=== PATIENT | female | born 1935 | race Caucasian/White ===

== ENCOUNTER 2018-10-16 10:19 | Observation (INO) ==
[2018-10-16 11:26] LABS: Basophils % 0.4 % (0.0-0.8); Eosinophils % 0.4 % (0.00-10.9); Hematocrit 47.2 VOL% (35.7-47.0); Immature Granulocytes % 0.5 %; Immature Granulocytes Absolute 0.05 #; Lymphocytes % 9.2 % (21.3-54.2); Mean Corpuscular HGB Conc 33.9 GM/DL (32-36); Mean Corpuscular Volume 89.2 FL (87-102); Mean Platelet Volume 10.9 FL (9.6-12.0); Monocytes % 4.4 % (1.7-12.7); Neutrophils % 85.1 % (38.7-73.9); Platelet Count 231 T/CUMM (130-400); Red Blood Count 5.29 MC/CUMM (3.8-5.5); Red Cell Distribution Width 13.6 % (9.3-17.3)
[2018-10-16 11:36] LABS: Bilirubin,Total 0.4 MG/DL (0.2-1.0); Calcium 9.5 MG/DL (8.5-10.1); Osmolality,Calculated 279.3 MOS/KG (273-304); Total Protein 6.8 G/DL (6.4-8.3)
[2018-10-16 11:46] LABS: Apearance,Urine Slightly Hazy (Clear); Bacteria,Urine Few /HPF (Few); Bilirubin,Urine Negative (Negative); Blood, Urine Negative (Negative); Glucose,Urine (UA) Negative (Negative); Ketones,Urine Negative (Negative); Mucus,Urine Many /LPF (Occasional); Nitrite,Urine Positive (Negative); Protein,Urine Negative; Squamous Epithelial Cell,Urine Occasional /HPF (0-10); Urine Color Yellow (Yellow); Urine Specific Gravity 1.006 (1.001-1.035); Urine Urobilinogen < 2.0 EU/DL (0.2-1.0); WBC,Urine 12 /HPF (0-6)
[2018-10-16] MEDS ORDERED: ONDANSETRON 4 MG/2 ML VIAL IV PRN (12:40)
[2018-10-16] MEDS ORDERED: ACETAMINOPHEN 325 MG TABLET PO PRN (12:40)
[2018-10-16] MEDS ORDERED: LEVOFLOXACIN INJ 500 MG in PREMIX 1 EACH IV STA (12:40)
[2018-10-17] MEDS: ZALEPLON 5 MG CAPSULE PO PRN ×2 (00:16→21:24)
[2018-10-17 05:38] LABS: Bilirubin,Total 0.6 MG/DL (0.2-1.0); Calcium 8.8 MG/DL (8.5-10.1); Total Protein 5.6 G/DL (6.4-8.3)
[2018-10-17 06:41] LABS: Basophils % 0.2 % (0.0-0.8); Eosinophils % 0.1 % (0.00-10.9); Hematocrit 43.3 VOL% (35.7-47.0); Hemoglobin 14.3 GM/DL (12.0-16.0); Immature Granulocytes % 0.5 %; Immature Granulocytes Absolute 0.06 #; Lymphocytes # 1.6 10*3/uL (1.4-4.0); Lymphocytes % 12.7 % (21.3-54.2); Mean Corpuscular Volume 90.4 FL (87-102); Mean Platelet Volume 11.5 FL (9.6-12.0); Monocytes % 8.3 % (1.7-12.7); Neutrophils % 78.2 % (38.7-73.9); Platelet Count 233 T/CUMM (130-400); Red Blood Count 4.79 MC/CUMM (3.8-5.5); Red Cell Distribution Width 13.5 % (9.3-17.3); White Blood Count 12.8 T/CUMM (4-12)
[2018-10-17] MEDS ORDERED: DEXTROSE 5% NACL 0.45% 1,000 ML IV SCH (08:00)
[2018-10-17] MEDS ORDERED: POTASSIUM CHLORIDE INJ 20 MEQ in DEXTROSE 5% NACL 0.45% 1,000 ML IV SCH (08:00)
[2018-10-17] MEDS: LEVOFLOXACIN INJ 500 MG in PREMIX 1 EACH IV SCH (09:01)
[2018-10-17] MEDS: PANTOPRAZOLE 40 MG TABLET PO SCH (09:01)
[2018-10-17] MEDS: DEXT 5% NACL 0.45% KCL 20 MEQ 20 MEQ/1,000 ML BAG IV SCH (10:58)
[2018-10-17] MEDS ORDERED: DILTIAZEM CD 240 MG CAPSULE PO SCH (21:00)
[2018-10-18] MEDS: DEXT 5% NACL 0.45% KCL 20 MEQ 20 MEQ/1,000 ML BAG IV SCH (00:13)
[2018-10-18 04:57] LABS: Basophils # 0.1 10*3/uL (0.0-0.2); Basophils % 0.8 % (0.0-0.8); Eosinophils # 0.2 10*3/uL (0.0-0.87); Eosinophils % 2.5 % (0.00-10.9); Hematocrit 42.2 VOL% (35.7-47.0); Immature Granulocytes % 0.4 %; Immature Granulocytes Absolute 0.04 #; Lymphocytes # 2.6 10*3/uL (1.4-4.0); Lymphocytes % 28.1 % (21.3-54.2); Mean Corpuscular HGB Conc 33.2 GM/DL (32-36); Mean Corpuscular Volume 90.8 FL (87-102); Mean Platelet Volume 10.8 FL (9.6-12.0); Monocytes % 8.7 % (1.7-12.7); Neutrophils % 59.5 % (38.7-73.9); Platelet Count 203 T/CUMM (130-400); Red Blood Count 4.65 MC/CUMM (3.8-5.5); Red Cell Distribution Width 13.6 % (9.3-17.3); White Blood Count 9.2 T/CUMM (4-12)
[2018-10-18 05:34] LABS: Bilirubin,Total 0.6 MG/DL (0.2-1.0); Calcium 8.4 MG/DL (8.5-10.1); Osmolality,Calculated 287.7 MOS/KG (273-304); Total Protein 5.2 G/DL (6.4-8.3)
[2018-10-18] MEDS ORDERED: LEVOFLOXACIN 500 MG TABLET PO SCH (08:00)
[2018-10-18 08:03] VITALS: BP 136/58
[2018-10-18] MEDS: LEVOFLOXACIN INJ 500 MG in PREMIX 1 EACH IV SCH (08:43)
[2018-10-18] MEDS ORDERED: ESTRADIOL 1 MG TABLET PO SCH (09:00)
[2018-10-18] MEDS ORDERED: ASPIRIN EC 81 MG TABLET PO SCH (09:00)
[2018-10-18] MEDS: PANTOPRAZOLE 40 MG TABLET PO SCH (09:31)
== END 2018-10-18 10:25 | disposition home or self-care (01) ==
LOC: N.ED 10:19 → N.EDINP 10:19 → N.2E 14:30
PROVIDERS: ADMIT Family Medicine; ATTEND Family Medicine